=== PATIENT | male | born 1950 | race Caucasian/White ===

== ENCOUNTER 2017-12-03 17:29 | Emergency (ER) | payer OTHER ==
[~2017-12-03] VITALS: Ht 175.3 cm; Wt 106.8 kg
[~2017-12-03 17:29] MED LIST: ASPIR 8181 M1 PO; BYSTOLIC10 MG PO; CLARITIN,ALAVAR10 MG PO
[2017-12-03 18:02] LABS: HEMATOCRIT 41.2 % (38.0-50.0); HEMOGLOBIN 14.5 G/DL (12.5-16.6); MCH 29.9 PG (29.0-34.0); MCHC 35.2 G/DL (30.0-36.0); MCV 84.9 FL (86-99); PLATELET COUNT 211 K/uL (156-360); RBC DIS.WIDTH-CV 11.5 % (11.8-14.6); RBC DIS.WIDTH-SD 35.6 % (39-53); RED BLOOD COUNT 4.85 M/uL (4.00-5.50); WHITE BLOOD COUNT 7.1 K/uL (4.1-10.2)
[2017-12-03 18:10] LABS: CHLORIDE 103 mEq/L (99-109); POTASSIUM 3.9 mEq/L (3.7-5.4); SODIUM 135 mEq/L (136-147)
[2017-12-03 18:12] LABS: GLUCOSE 313 mg/dL (70-99)
[2017-12-03 18:16] LABS: GFR ESTIMATE (CALCULATED) > 59 mL/min/ (58.99-99999)
[2017-12-03 18:17] LABS: UREA NITROGEN (BUN) 19 mg/dL (9-23)
[2017-12-03] MEDS ORDERED: VENTOLIN HFA18 GM IH (19:01)
[2017-12-03] MEDS ORDERED: PROVENTIL,2.5 MG/3 M IH (19:01)
[2017-12-03] MEDS ORDERED: TESSALON200 MG PO (19:01)
[2017-12-03] MEDS ORDERED: MEDROL DOSEPAK4 MG PO (19:02)
[2017-12-03 20:00] VITALS: BP 169/88
== END 2017-12-03 20:01 | disposition home or self-care (01) ==
LOC: EME 17:29
DX: J06.9 Acute upper respiratory infection, unspecified (principal); E11.9 Type 2 diabetes mellitus without complications; I10 Essential (primary) hypertension; Z87.01 Personal history of pneumonia (recurrent); Z79.82 Long term (current) use of aspirin
CPT/HCPCS: 71046; 80048; 85027; 94640; 99281; 99284; J7512

== ENCOUNTER 2018-04-25 17:44 | Emergency (ER) | payer OTHER ==
[~2018-04-25] VITALS: Ht 175.3 cm; Wt 107.0 kg
[~2018-04-25 17:44] MED LIST changes: +MEDROL DOSEPAK4 MG PO; +PROVENTIL,2.5 MG/3 M IH; +TESSALON200 MG PO; +VENTOLIN HFA18 GM IH
[2018-04-25 19:51] VITALS: BP 156/78
== END 2018-04-25 19:53 | disposition home or self-care (01) ==
LOC: EME 17:44
DX: R25.2 Cramp and spasm (principal); R60.0 Localized edema; M79.662 Pain in left lower leg; E11.9 Type 2 diabetes mellitus without complications; I10 Essential (primary) hypertension; Z79.82 Long term (current) use of aspirin
CPT/HCPCS: 93971; 99281; 99284